=== PATIENT | female | born 1945 | race Caucasian/White ===

== ENCOUNTER 2017-01-09 19:53 | Inpatient (IN) | payer OTHER, MEDICAID ==
[~2017-01-09] VITALS: Ht 157.5 cm; Wt 61.7 kg
[2017-01-09 19:53] VITALS: BP_SYST 112
[2017-01-09] MEDS ORDERED: NACL 0.9% 1,000 ML IV SCH (20:04)
[2017-01-09 20:48] LABS: BASOPHILS % (AUTO) 0.2 % (0.0-2.0); EOSINOPHILS # (AUTO) 0.1 K/uL (0.0-0.4); EOSINOPHILS % (AUTO) 0.7 % (0.0-4.0); HEMATOCRIT 29.7 % (36-48); HEMOGLOBIN 9.2 g/dL (12.0-16.0); LYMPHOCYTES % (AUTO) 20.8 % (20.5-51.5); MEAN CORPUSCULAR HEMOGLOBIN 29 pg (27-31); MEAN CORPUSCULAR HGB CONC 31 % (32-36); MEAN CORPUSCULAR VOLUME 93 fL (79.0-98.0); MONOCYTES # (AUTO) 0.7 K/uL (0.0-1.0); NEUTROPHILS # (AUTO) 10.6 K/uL (1.8-7.7); NEUTROPHILS % (AUTO) 73.3 % (40.0-70.0); RED BLOOD CELL COUNT(AUTO) 3.19 MIL/uL (4.2-6.2); RED CELL DISTRIBUTION WIDTH 14.5 % (9.0-15.0); WHITE BLOOD COUNT (AUTO) 14.4 K/uL (4.8-10.8)
[2017-01-09 20:56] LABS: PLATELET COUNT (AUTO) 1016 K/uL (130-430)
[2017-01-09 20:57] LABS: CALCIUM 9.7 mg/dL (8.4-11.0)
[2017-01-09 20:58] LABS: CREATININE 2.41 mg/dL (0.55-1.30)
[2017-01-09 21:00] LABS: INR 1.2 (0.8-1.2); PROTHROMBIN TIME 12.6 SECS (9.5-12.5)
[2017-01-09 21:02] LABS: ALBUMIN 2.5 g/dL (3.4-4.8); TOTAL BILIRUBIN 0.2 mg/dL (0.0-1.0); TOTAL PROTEIN, SERUM 10.5 g/dL (6.4-8.3)
[2017-01-09] MEDS ORDERED: NACL 0.9% 1,000 ML IV ONE (21:30)
[2017-01-09] MEDS ORDERED: cefTRIAXone 1 GM IVPB PREMIX 50 ML IV ONE (21:30)
[2017-01-09 21:34] LABS: BILIRUBIN,URINE NEGATIVE (NEGATIVE); BLOOD, URINE 3+ (NEGATIVE); CLARITY/URINE CLOUDY (CLEAR); COLOR,URINE YELLOW (YELLOW); GLUCOSE,URINE NEGATIVE (NEGATIVE); KETONES,URINE NEGATIVE (NEGATIVE); LEUKOCYTE ESTERASE ,URINE 3+ (NEGATIVE); NITRITE, URINE POSITIVE (NEGATIVE); PROTEIN URINE 2+ (NEGATIVE); UROBILINOGEN,URINE 0.2 (0.2-1.0)
[2017-01-09] MEDS ORDERED: MIRT45TA PO (21:47)
[2017-01-09] MEDS ORDERED: ENAL10TA PO (21:47)
[2017-01-09] MEDS ORDERED: DONE10TA44 PO (21:47)
[2017-01-09] MEDS ORDERED: CARV3.1246 PO (21:47)
[2017-01-09] MEDS ORDERED: FERR-57 PO (21:47)
[2017-01-09] MEDS ORDERED: MULT-514 PO (21:47)
[2017-01-09] MEDS ORDERED: IBUP-1969 PO (21:47)
[2017-01-09] MEDS ORDERED: VITD400 PO (21:47)
[2017-01-09] MEDS ORDERED: CRAN450C PO (21:47)
[2017-01-09] MEDS ORDERED: MEGE400O PO (21:47)
[2017-01-09] MEDS ORDERED: NA P118E RC (21:47)
[2017-01-09] MEDS ORDERED: HYDR-1189 PO (21:47)
[2017-01-09] MEDS ORDERED: ACET325T53 PO (21:47)
[2017-01-09] MEDS ORDERED: TRAZ150T77 PO (21:47)
[2017-01-09] MEDS ORDERED: BISA-79 RC (21:47)
[2017-01-09] MEDS ORDERED: DOCU-144 PO (21:47)
[2017-01-09] MEDS ORDERED: DULR10 RC (21:47)
[2017-01-09] MEDS ORDERED: MAGN400O4 PO (21:47)
[2017-01-09] MEDS ORDERED: CAT.1 PO (21:47)
[2017-01-09] MEDS ORDERED: CALC-1036 PO (21:47)
[2017-01-09] MEDS ORDERED: ASPI-1063 PO (21:47)
[2017-01-09] MEDS ORDERED: PRO40 PO (21:47)
[2017-01-09] MEDS ORDERED: SENNS PO (21:47)
[2017-01-09 22:45] VITALS: BP_SYST 96
[2017-01-09] MEDS ORDERED: *TOBRAMYCIN PER PHARMACY XX PRN (23:30)
[2017-01-09] MEDS ORDERED: cloNIDine HCL 0.1 MG TABLET PO PRN (23:30)
[2017-01-09] MEDS ORDERED: BISACODYL 5 MG TABLET.DR (DULCOLAX) PO PRN (23:30)
[2017-01-09] MEDS ORDERED: traZODone HCL 50 MG TABLET (DESYREL) PO PRN (23:30)
[2017-01-09] MEDS ORDERED: MILK OF MAGNESIA 30 ML UDC PO PRN ×2 (23:30)
[2017-01-09] MEDS ORDERED: NA PHOS,M-B/NA PHOS,DI-BA 118 ML (FLEET ENEMA) RC PRN (23:30)
[2017-01-09 23:59] LABS: BACTERIA,URINE MANY /HPF (None Seen); URINE AMORPHOUS URATE 2+ /HPF (None Seen); WBC,URINE >100 /HPF (0-3)
[2017-01-09] MEDS: TEMAZEPAM 15 MG CAPSULE PO PRN (23:59)
[2017-01-10] VITALS (7 sets, daily range): BP systolic 92–111
[2017-01-10] LABS: COARSE GRANULAR CASTS,URINE 0-10 /LPF (None Seen); MUCUS,URINE None Seen /LPF (None Seen)
[2017-01-10] MEDS ORDERED: TOBRAMYCIN SULFATE IV ONE (00:30)
[2017-01-10] MEDS ORDERED: NS IV ONE (00:30)
[2017-01-10] MEDS ORDERED: TOBRAMYCIN SULFATE 80 MG/2 ML VIAL ONE (00:50)
[2017-01-10] MEDS: D5/0.45 NS 1,000 ML IV SCH ×2 (00:53→12:50)
[2017-01-10 06:48] LABS: CALCIUM 9.1 mg/dL (8.4-11.0); CREATININE 2.26 mg/dL (0.55-1.30); POTASSIUM 4.8 mmol/L (3.5-5.1)
[2017-01-10 06:53] LABS: BASOPHILS % (AUTO) 0.2 % (0.0-2.0); EOSINOPHILS # (AUTO) 0.1 K/uL (0.0-0.4); EOSINOPHILS % (AUTO) 0.9 % (0.0-4.0); HEMATOCRIT 26.7 % (36-48); HEMOGLOBIN 8.8 g/dL (12.0-16.0); LYMPHOCYTES # (AUTO) 1.9 K/uL (1.0-5.5); LYMPHOCYTES % (AUTO) 14.2 % (20.5-51.5); MEAN CORPUSCULAR HEMOGLOBIN 31 pg (27-31); MEAN CORPUSCULAR HGB CONC 33 % (32-36); MEAN CORPUSCULAR VOLUME 93 fL (79.0-98.0); MONOCYTES # (AUTO) 0.7 K/uL (0.0-1.0); MONOCYTES % (AUTO) 5.2 % (1.7-9.3); NEUTROPHILS # (AUTO) 10.7 K/uL (1.8-7.7); NEUTROPHILS % (AUTO) 79.5 % (40.0-70.0); RED BLOOD CELL COUNT(AUTO) 2.89 MIL/uL (4.2-6.2); RED CELL DISTRIBUTION WIDTH 14.4 % (9.0-15.0); WHITE BLOOD COUNT (AUTO) 13.4 K/uL (4.8-10.8)
[2017-01-10 06:56] LABS: PLATELET COUNT (AUTO) 831 K/uL (130-430)
[2017-01-10 07:14] LABS: IRON (SERUM) 24 mcg/dL (37-145); TOTAL IRON BIND. CAPACITY 142 ug/dL (250-450)
[2017-01-10] MEDS: MEGESTROL ACETATE 400 MG/10 ML UDC PO SCH ×2 (09:13→20:36)
[2017-01-10] MEDS: DOCUSATE SODIUM 100 MG CAPSULE PO SCH (09:14)
[2017-01-10] MEDS: CHOLECALCIFEROL (VITAMIN D-3) 400 UNIT TABLET PO SCH (09:14)
[2017-01-10] MEDS: ASPIRIN 81 MG TABLET(ECOTRIN) PO SCH (09:14)
[2017-01-10] MEDS: PANTOPRAZOLE SODIUM 40 MG TAB PO SCH (09:14)
[2017-01-10] MEDS: FERROUS SULFATE 325 MG TABLET.DR PO SCH (09:14)
[2017-01-10] MEDS: BISACODYL 10 MG/SUPPOSITORY RC SCH (09:14)
[2017-01-10] MEDS: HYDROcodone/ACETAMIN 5-325 MG TAB (NORCO/ VICODIN) PO PRN ×2 (10:54→19:57)
[2017-01-10] MEDS: CARVEDILOL 3.125 MG TABLET (COREG) PO SCH (12:00)
[2017-01-10] MEDS: MILK OF MAGNESIA 30 ML UDC PO SCH (20:36)
[2017-01-10] MEDS: SENNOSIDES/DOCUSATE SODIUM 1 TAB TABLET(SENOKOT-S) PO SCH (20:37)
[2017-01-10] MEDS: DONEPEZIL HCL 5 MG TABLET (ARICEPT) PO SCH (20:37)
[2017-01-10] MEDS: MIRTAZAPINE 15 MG TABLET PO SCH (20:37)
[2017-01-10] MEDS: CEFEPIME 1 GM in D5W 50 ML IV SCH (20:49)
[2017-01-10] MEDS ORDERED: TOBRAMYCIN SULFATE 80 MG in NS 50 ML IV SCH (23:00)
[2017-01-11] VITALS (7 sets, daily range): BP systolic 94–116
[2017-01-11] MEDS: D5/0.45 NS 1,000 ML IV SCH ×2 (05:32→19:19)
[2017-01-11 06:10] LABS: CALCIUM 8.7 mg/dL (8.4-11.0); CREATININE 2.02 mg/dL (0.55-1.30); POTASSIUM 4.6 mmol/L (3.5-5.1)
[2017-01-11 06:16] LABS: EOSINOPHILS # (AUTO) 0.1 K/uL (0.0-0.4)
[2017-01-11 07:28] LABS: BASOPHILS % (AUTO) 0.2 % (0.0-2.0); EOSINOPHILS % (AUTO) 0.8 % (0.0-4.0); HEMATOCRIT 23.6 % (36-48); HEMOGLOBIN 7.7 g/dL (12.0-16.0); LYMPHOCYTES # (AUTO) 2.5 K/uL (1.0-5.5); LYMPHOCYTES % (AUTO) 20.3 % (20.5-51.5); MEAN CORPUSCULAR HEMOGLOBIN 30 pg (27-31); MEAN CORPUSCULAR HGB CONC 33 % (32-36); MEAN CORPUSCULAR VOLUME 92 fL (79.0-98.0); MONOCYTES % (AUTO) 8.2 % (1.7-9.3); NEUTROPHILS # (AUTO) 8.6 K/uL (1.8-7.7); PLATELET COUNT (AUTO) 673 K/uL (130-430); RED BLOOD CELL COUNT(AUTO) 2.56 MIL/uL (4.2-6.2); RED CELL DISTRIBUTION WIDTH 14.1 % (9.0-15.0); WHITE BLOOD COUNT (AUTO) 12.2 K/uL (4.8-10.8)
[2017-01-11 08:16] LABS: NEUTROPHILS % (AUTO) 70.5 % (40.0-70.0)
[2017-01-11] MEDS: FERROUS SULFATE 325 MG TABLET.DR PO SCH (10:11)
[2017-01-11] MEDS: ASPIRIN 81 MG TABLET(ECOTRIN) PO SCH (10:12)
[2017-01-11] MEDS: PANTOPRAZOLE SODIUM 40 MG TAB PO SCH (10:12)
[2017-01-11] MEDS: CHOLECALCIFEROL (VITAMIN D-3) 400 UNIT TABLET PO SCH (10:12)
[2017-01-11] MEDS: MEGESTROL ACETATE 400 MG/10 ML UDC PO SCH ×2 (10:13→20:42)
[2017-01-11] MEDS: DOCUSATE SODIUM 100 MG CAPSULE PO SCH (10:13)
[2017-01-11] MEDS: BISACODYL 10 MG/SUPPOSITORY RC SCH (10:13)
[2017-01-11] MEDS: CEFEPIME 1 GM in D5W 50 ML IV SCH ×2 (10:16→20:42)
[2017-01-11 12:07] LABS: FOLATE (FOLIC ACID) 7.6 ng/mL (>3.0)
[2017-01-11] MEDS: CARVEDILOL 3.125 MG TABLET (COREG) PO SCH (12:37)
[2017-01-11] MEDS: SENNOSIDES/DOCUSATE SODIUM 1 TAB TABLET(SENOKOT-S) PO SCH (20:42)
[2017-01-11] MEDS: MILK OF MAGNESIA 30 ML UDC PO SCH (20:42)
[2017-01-11] MEDS: MIRTAZAPINE 15 MG TABLET PO SCH (20:42)
[2017-01-11] MEDS: DONEPEZIL HCL 5 MG TABLET (ARICEPT) PO SCH (20:42)
[2017-01-11] MEDS: HYDROcodone/ACETAMIN 5-325 MG TAB (NORCO/ VICODIN) PO PRN (20:43)
[2017-01-12] VITALS (7 sets, daily range): BP systolic 97–137
[2017-01-12 06:15] LABS: CALCIUM 8.9 mg/dL (8.4-11.0); CREATININE 1.85 mg/dL (0.55-1.30); POTASSIUM 4.5 mmol/L (3.5-5.1)
[2017-01-12 07:14] LABS: BASOPHILS % (AUTO) 0.1 % (0.0-2.0); EOSINOPHILS # (AUTO) 0.1 K/uL (0.0-0.4); EOSINOPHILS % (AUTO) 0.8 % (0.0-4.0); HEMOGLOBIN 7.5 g/dL (12.0-16.0); LYMPHOCYTES # (AUTO) 2.2 K/uL (1.0-5.5); LYMPHOCYTES % (AUTO) 21.4 % (20.5-51.5); MEAN CORPUSCULAR HEMOGLOBIN 30 pg (27-31); MEAN CORPUSCULAR HGB CONC 33 % (32-36); MEAN CORPUSCULAR VOLUME 92 fL (79.0-98.0); MONOCYTES # (AUTO) 0.8 K/uL (0.0-1.0); NEUTROPHILS # (AUTO) 7.3 K/uL (1.8-7.7); NEUTROPHILS % (AUTO) 69.7 % (40.0-70.0); PLATELET COUNT (AUTO) 692 K/uL (130-430); RED BLOOD CELL COUNT(AUTO) 2.49 MIL/uL (4.2-6.2); RED CELL DISTRIBUTION WIDTH 14.1 % (9.0-15.0); WHITE BLOOD COUNT (AUTO) 10.4 K/uL (4.8-10.8)
[2017-01-12 07:35] LABS: IRON (SERUM) 20 mcg/dL (37-145); TOTAL IRON BIND. CAPACITY 131 ug/dL (250-450)
[2017-01-12] MEDS: PANTOPRAZOLE SODIUM 40 MG TAB PO SCH (09:02)
[2017-01-12] MEDS: DOCUSATE SODIUM 100 MG CAPSULE PO SCH (09:02)
[2017-01-12] MEDS: CEFEPIME 1 GM in D5W 50 ML IV SCH (09:02)
[2017-01-12] MEDS: BISACODYL 10 MG/SUPPOSITORY RC SCH (09:02)
[2017-01-12] MEDS: CHOLECALCIFEROL (VITAMIN D-3) 400 UNIT TABLET PO SCH (09:02)
[2017-01-12] MEDS: MEGESTROL ACETATE 400 MG/10 ML UDC PO SCH ×2 (09:02→20:22)
[2017-01-12] MEDS: FERROUS SULFATE 325 MG TABLET.DR PO SCH (09:02)
[2017-01-12] MEDS: D5/0.45 NS 1,000 ML IV SCH ×2 (09:02→18:10)
[2017-01-12] MEDS: ASPIRIN 81 MG TABLET(ECOTRIN) PO SCH (09:02)
[2017-01-12] MEDS: CARVEDILOL 3.125 MG TABLET (COREG) PO SCH (09:03)
[2017-01-12] MEDS ORDERED: traZODone HCL 50 MG TABLET (DESYREL) PO PRN (11:08)
[2017-01-12] MEDS: ACETAMINOPHEN 325 MG TABLET PO PRN ×2 (13:02→20:17)
[2017-01-12] MEDS ORDERED: IRON DEXTRAN COMPLEX 25 MG in NS 50 ML IV ONE (16:00)
[2017-01-12] MEDS ORDERED: IRON DEXTRAN COMPLEX 75 MG in NS 100 ML IV SCH (18:00)
[2017-01-12] MEDS: SENNOSIDES/DOCUSATE SODIUM 1 TAB TABLET(SENOKOT-S) PO SCH (20:15)
[2017-01-12] MEDS: MILK OF MAGNESIA 30 ML UDC PO SCH (20:22)
[2017-01-12] MEDS: MIRTAZAPINE 15 MG TABLET PO SCH (20:23)
[2017-01-12] MEDS: DONEPEZIL HCL 5 MG TABLET (ARICEPT) PO SCH (20:23)
[2017-01-12] MEDS: TEMAZEPAM 15 MG CAPSULE PO PRN (22:43)
[2017-01-12] MEDS: MEROPENEM 500 MG in NS 50 ML IV SCH (22:44)
[2017-01-13 01:18] VITALS: BP_SYST 133
[2017-01-13 05:01] VITALS: BP_SYST 130
[2017-01-13] MEDS: MEROPENEM 500 MG in NS 50 ML IV SCH ×4 (05:19→22:50)
[2017-01-13 05:55] LABS: BASOPHILS % (AUTO) 0.3 % (0.0-2.0); CALCIUM 9.2 mg/dL (8.4-11.0); CREATININE 1.87 mg/dL (0.55-1.30); EOSINOPHILS # (AUTO) 0.1 K/uL (0.0-0.4); HEMATOCRIT 24.9 % (36-48); HEMOGLOBIN 8.1 g/dL (12.0-16.0); LYMPHOCYTES # (AUTO) 2.9 K/uL (1.0-5.5); MEAN CORPUSCULAR HEMOGLOBIN 30 pg (27-31); MEAN CORPUSCULAR HGB CONC 32 % (32-36); MEAN CORPUSCULAR VOLUME 92 fL (79.0-98.0); MONOCYTES # (AUTO) 0.8 K/uL (0.0-1.0); MONOCYTES % (AUTO) 8.5 % (1.7-9.3); NEUTROPHILS % (AUTO) 60.2 % (40.0-70.0); PLATELET COUNT (AUTO) 703 K/uL (130-430); POTASSIUM 4.5 mmol/L (3.5-5.1); RED BLOOD CELL COUNT(AUTO) 2.72 MIL/uL (4.2-6.2); RED CELL DISTRIBUTION WIDTH 14.2 % (9.0-15.0); WHITE BLOOD COUNT (AUTO) 9.8 K/uL (4.8-10.8)
[2017-01-13 08:00] VITALS: BP_SYST 104
[2017-01-13] MEDS ORDERED: IRON DEXTRAN COMPLEX 100 MG in NS 100 ML IV SCH (09:00)
[2017-01-13] MEDS: BISACODYL 10 MG/SUPPOSITORY RC SCH (09:00)
[2017-01-13] MEDS: CARVEDILOL 3.125 MG TABLET (COREG) PO SCH (09:00)
[2017-01-13] MEDS: DOCUSATE SODIUM 100 MG CAPSULE PO SCH (09:00)
[2017-01-13] MEDS: ASPIRIN 81 MG TABLET(ECOTRIN) PO SCH (09:58)
[2017-01-13] MEDS: FERROUS SULFATE 325 MG TABLET.DR PO SCH (09:58)
[2017-01-13] MEDS: CHOLECALCIFEROL (VITAMIN D-3) 400 UNIT TABLET PO SCH (09:58)
[2017-01-13] MEDS: MEGESTROL ACETATE 400 MG/10 ML UDC PO SCH ×2 (09:58→20:51)
[2017-01-13] MEDS: PANTOPRAZOLE SODIUM 40 MG TAB PO SCH (09:58)
[2017-01-13] MEDS: D5/0.45 NS 1,000 ML IV SCH (09:58)
[2017-01-13 12:34] VITALS: BP_SYST 115
[2017-01-13 16:11] VITALS: BP_SYST 94
[2017-01-13] MEDS: IRON DEXTRAN COMPLEX 100 MG in NS 100 ML IV SCH (18:00)
[2017-01-13 19:20] VITALS: BP_SYST 158
[2017-01-13] MEDS: SENNOSIDES/DOCUSATE SODIUM 1 TAB TABLET(SENOKOT-S) PO SCH (20:50)
[2017-01-13] MEDS: MIRTAZAPINE 15 MG TABLET PO SCH (20:50)
[2017-01-13] MEDS: TEMAZEPAM 15 MG CAPSULE PO PRN (20:50)
[2017-01-13] MEDS: MILK OF MAGNESIA 30 ML UDC PO SCH (20:50)
[2017-01-13] MEDS: DONEPEZIL HCL 5 MG TABLET (ARICEPT) PO SCH (20:50)
[2017-01-13] MEDS: HYDROcodone/ACETAMIN 5-325 MG TAB (NORCO/ VICODIN) PO PRN (22:55)
[2017-01-14] VITALS (7 sets, daily range): BP systolic 102–150
[2017-01-14] MEDS: D5/0.45 NS 1,000 ML IV SCH ×2 (05:09→10:10)
[2017-01-14] MEDS: MEROPENEM 500 MG in NS 50 ML IV SCH ×2 (05:09→14:32)
[2017-01-14] MEDS: CHOLECALCIFEROL (VITAMIN D-3) 400 UNIT TABLET PO SCH (09:39)
[2017-01-14] MEDS: MEGESTROL ACETATE 400 MG/10 ML UDC PO SCH (09:40)
[2017-01-14] MEDS: FERROUS SULFATE 325 MG TABLET.DR PO SCH (09:40)
[2017-01-14] MEDS: ASPIRIN 81 MG TABLET(ECOTRIN) PO SCH (09:40)
[2017-01-14] MEDS: PANTOPRAZOLE SODIUM 40 MG TAB PO SCH (09:40)
[2017-01-14] MEDS: CARVEDILOL 3.125 MG TABLET (COREG) PO SCH (09:40)
[2017-01-14] MEDS: BISACODYL 10 MG/SUPPOSITORY RC SCH (09:40)
[2017-01-14] MEDS: DOCUSATE SODIUM 100 MG CAPSULE PO SCH (09:41)
[2017-01-14] MEDS: IRON DEXTRAN COMPLEX 100 MG in NS 100 ML IV SCH (17:52)
[2017-01-14] MEDS: HYDROcodone/ACETAMIN 5-325 MG TAB (NORCO/ VICODIN) PO PRN (20:12)
== END 2017-01-14 22:16 | DRG 682 ==
LOC: SED 19:53 → STU 22:26 → SMU 22:27
PROVIDERS: ADMIT Family Medicine; ATTEND Family Medicine
PROC: 05H533Z Insertion of Infusion Device into Right Subclavian Vein, Percutaneous Approach (ICD-10-PCS; principal; 2017-01-14)
PROC: B546ZZA Ultrasonography of Right Subclavian Vein, Guidance (ICD-10-PCS; 2017-01-14)
DX: N17.9 Acute kidney failure, unspecified (principal); E43 Unspecified severe protein-calorie malnutrition; N39.0 Urinary tract infection, site not specified; I69.354 Hemiplegia and hemiparesis following cerebral infarction affecting left non-dominant side; E86.0 Dehydration; F32.9 Major depressive disorder, single episode, unspecified; F03.90 Unspecified dementia, unspecified severity, without behavioral disturbance, psychotic disturbance, mood disturbance, and anxiety; E11.9 Type 2 diabetes mellitus without complications; E55.9 Vitamin D deficiency, unspecified; D47.3 Essential (hemorrhagic) thrombocythemia; N18.9 Chronic kidney disease, unspecified; I12.9 Hypertensive chronic kidney disease with stage 1 through stage 4 chronic kidney disease, or unspecified chronic kidney disease; D50.9 Iron deficiency anemia, unspecified; Z88.2 Allergy status to sulfonamides; Z79.899 Other long term (current) drug therapy; Z68.24 Body mass index [BMI] 24.0-24.9, adult
CPT/HCPCS: 36415; 71010; 76700-TC; 80048; 80053; 81000-TC; 82272; 82607; 82728; 82746; 83540-TC; 83550-TC; 83605; 83690-TC; 85025; 85610-TC; 85730-TC; 87040-TC; 87081; 87086; 87186-TC; 93005; 96361; 96365; 99285; C1751; J0692; J0696; J1750; J2185; J3260; J7030; J7060